=== PATIENT | male | born 1960 | race Caucasian/White ===

== ENCOUNTER 2017-02-20 02:41 | Inpatient (IN) | payer BC ==
[~2017-02-20] VITALS: Ht 177.8 cm; Wt 106.1 kg
[2017-02-20] MEDS ORDERED: IPRATRPIUM/ALBUTEROL 0.5/2.5MG 3 ML NEBU. ONE (02:47)
[2017-02-20] MEDS ORDERED: IV NORMAL SALINE 1,000ML 1,000 ML IV SCH ×2 (02:49→06:00)
[2017-02-20] MEDS ORDERED: ASPIRIN 325 MG TABLET PO ONE (03:00)
[2017-02-20] MEDS ORDERED: 0.9 % SODIUM CHLORIDE 10 ML DISP.SYRIN. IV PRN (03:00)
[2017-02-20] MEDS ORDERED: LORAZEPAM 2 MG/ML VIAL IV ONE (03:00)
[2017-02-20] MEDS: AZITHROMYCIN 500 MG in IV NORMAL SALINE 250ML 250 ML IV SCH (03:00)
[2017-02-20] MEDS ORDERED: AZITHROMYCIN 500 MG VIAL. IV ONE (03:13)
[2017-02-20] MEDS ORDERED: CEFTRIAXONE SODIUM 1 GM VIAL IV ONE (03:14)
[2017-02-20] MEDS ORDERED: IV NORMAL SALINE 100ML 100 ML ONE (03:14)
[2017-02-20] MEDS ORDERED: IV NORMAL SALINE 250ML 250 ML ONE (03:14)
[2017-02-20 03:24] LABS: BASO # 0.1 x10^3/uL (0.0-0.2); BASO % 1 % (0-3); EOS # 0.1 x10^3/uL (0.0-0.7); EOS % 1 % (0-3); HEMATOCRIT 41.3 % (39.0-53.0); HEMOGLOBIN 13.8 g/dL (13.0-17.5); LYMPH % 16 % (24-48); MEAN CORPUSCULAR HEMOGLOBIN 31 pg (25-35); MEAN CORPUSCULAR HGB CONC 33 g/dL (31-37); MEAN CORPUSCULAR VOLUME 94 fL (79-100); MONO # 0.9 x10^3/uL (0.0-1.1); MONO % 7 % (0-9); NEUT # 9.5 x10^3uL (1.8-7.7); NEUT % 76 % (31-73); PLATELET COUNT 257 x10^3/uL (140-400); RED BLOOD COUNT 4.39 x10^6/uL (4.30-5.70); RED CELL DISTRIBUTION WIDTH 14.1 % (11.5-14.5); WHITE BLOOD COUNT 12.5 x10^3/uL (4.0-11.0)
--- NOTE | 2017-02-20 03:29 | PHYS DOC ---
General Chief Complaint: SHORTNESS OF BREATH Stated Complaint: DIFFICULTY BREATHING Time Seen by MD: 02:41 Source: patient Exam Limitations: clinical condition Problems: History of Present Illness Initial Comments Patient is a pleasant 56-year-old male with a one-week history of progressive shortness of breath with productive cough fever and chills supposedly diagnosed today with a pneumonia but not receiving any particular treatment therapy. He describes increasing shortness of breath anxiety chest pain has gotten progressively worse is now continuous with a productive cough, out without sore throat, without runny nose, without headache or rash. He recently traveled to and from [place] via airplane about 1 week ago before the symptoms began. He denies any night sweats or weight loss denies any lower leg swelling pain or edema denies any change in medications. Had a history of COPD or asthma. Modifying Factors: worse with activity, worse with coughing Allergies: Coded Allergies: No Known Drug Allergies (Unverified , 02/20/17) Past Medical History Medical History: heart disease, hypertension Surgical History: angioplasty Family History Significant Family History: no pertinent family hx Social History Smoker: non-smoker Alcohol: rarely Review of Systems Constitutional: chills fever weakness EENTM: denies ear pain, nose congestiondenies throat pain, denies throat swelling, denies mouth pain Respiratory: cough shortness of breathdenies wheezing Cardiovascular: chest paindenies edema, denies palpitations, denies syncope Gastrointestinal: no symptoms reported Genitourinary: no symptoms reported Musculoskeletal: no symptoms reported Skin: no symptoms reported Psychiatric/Neurological: no symptoms reported Hematologic/Lymphatic: no symptoms reported Immunological/Allergic: no symptoms reported All Other Systems: Reviewed and Negative Physical Exam General Appearance: moderate distress Ears, Nose, Throat: pharynx normal, nasal congestion Neck: full range of motion, supple, normal inspection, trachea midline Respiratory: respiratory distress, decreased breath sounds, rales Cardiovascular: normal peripheral pulses, regular rate, rhythm Gastrointestinal: normal bowel sounds, non tender, soft, no organomegaly Extremities: normal range of motion, non-tender, normal inspection, no pedal edema, no calf tenderness, normal capillary refill Neurologic/Psychiatric: alert, normal mood/affect, oriented x 3 Skin: normal color Lymphatic: no adenopathy Comments He does demonstrate moderate anxiety secondary to wrist for distress. There is no obvious cyanosis there is no diaphoresis at this time. His respiratory rate is greater than 20 his oxygen saturation is 95% on room air Orders, Labs, [facility] Laboratory Tests 02/20/17 02:55: White Blood Count 12.5, Red Blood Count 4.39, Hemoglobin 13.8, Hematocrit 41.3, Mean Corpuscular Volume 94, Mean Corpuscular Hemoglobin 31, Mean Corpuscular Hemoglobin Concent 33, Red Cell Distribution Width 14.1, Platelet Count 257, Neutrophils (%) (Auto) 76, Lymphocytes (%) (Auto) 16, Monocytes (%) (Auto) 7, Eosinophils (%) (Auto) 1, Basophils (%) (Auto) 1, Neutrophils # (Auto) 9.5, Lymphocytes # (Auto) 2.0, Monocytes # (Auto) 0.9, Eosinophils # (Auto) 0.1, Basophils # (Auto) 0.1, Sodium Level 139, Potassium Level 3.9, Chloride Level 101, Carbon Dioxide Level 27, Anion Gap 11, Blood Urea Nitrogen 12, Creatinine 0.8, Estimated GFR (Cockcroft-Gault) 99.6, BUN/Creatinine Ratio 15, Glucose Level 104, Lactic Acid Level 1.1, Calcium Level 9.8, Magnesium Level 2.2, Total Bilirubin 0.5, Aspartate Amino Transf (AST/SGOT) 62, Alanine Aminotransferase ( ALT/SGPT) 98, Alkaline Phosphatase 66, Creatine Kinase 135, Creatine Kinase MB ( Mass) 1.0, Creatine Kinase MB Relative Index 0.7, Troponin I Quantitative < 0.017, Total Protein 8.4, Albumin 3.4, Albumin/Globulin Ratio 0.7 02/20/17 03:00: Influenza Type A (Rapid) Negative, Influenza Type B (Rapid) Negative 02/20/17 03:05: Urine Collection Type Unknown, Urine Color Yellow, Urine Clarity Clear, Urine pH 5.0, Urine Specific Sharples 1.020, Urine Protein >100 mg/dl, Urine Glucose ( UA) Neg, Urine Ketones (Stick) Neg, Urine Blood Large, Urine Nitrite Neg, Urine Bilirubin Neg, Urine Urobilinogen Dipstick 1, Urine Leukocyte Esterase Neg, Urine RBC 3-5, Urine WBC 1-4, Urine Squamous Epithelial Cells Occ, Urine Bacteria Few Patient is a pleasant 56-year-old male with history of heart disease hypertension and prior skin cancer presents with shortness of breath that began a week ago after infectious exposure while traveling back and forth to [place] on an airplane. He was seen in urgent care earlier today chest x-ray was completed and he was called with the results of possible infiltrate on his chest x-ray. Patient came in tonight with increasing shortness of breath anxiety fatigue and chest discomfort secondary to the presumptive diagnosis of pneumonia. At this time patient resting more comfortably at approximate 320 8 in the morning after being given some Ativan and fluids he'll be given appropriate antibiotics after appropriate lab tests are been drawn including blood cultures and lactic acid level and given his recent travel history and acute onset of shortness of breath CT imaging chest completed as well. EKG timed at 2:51 AM demonstrates sinus arrhythmia with left axis deviation and old Q wave inferiorly leads 3 and aVF is a somewhat S elevation or changes no T-wave inversion. Patient's chest x-ray demonstrates focal lymphatic left upper lung. Quick review of CT imaging of the chest demonstrates same wedge-shaped infiltrate in the left upper lung. No obvious aortic dissection noted on initial evaluation patient feels markedly better with Ativan IV fluids and antibiotics. Given patient's continued respiratory distress I will admit him to the hospitalist Dr. Naik. It is noted that his white blood cell count is elevated with left shift is noted that his lactic acid level is 1.1 which means is patient is likely not septic at this time patient's troponin is negative CK-MB is within normal limits and MB ratio is within normal limits. Patient influenza screen is also negative per review ILYA CLARKE MD Feb 20, 2017 03:29
[2017-02-20] MEDS: CEFTRIAXONE SODIUM 1 GM in IV NORMAL SALINE 100ML 100 ML IV SCH (03:30)
[2017-02-20 03:34] LABS: BACTERIA,URINE FEW /HPF (0-FEW); BILIRUBIN,URINE NEG (NEG); CLARITY,URINE CLEAR; COLOR,URINE YELLOW; GLUCOSE,URINE NEG (NEG); NITRITE,URINE NEG (NEG); SQUAMOUS EPITHELIAL CELL,UR OCC /LPF; UROBILINOGEN,URINE 1 mg/dL (0.2 mg/dL)
[2017-02-20] MEDS ORDERED: CONTRAST GIVEN MC PRN (03:45)
[2017-02-20 03:53] LABS: ALBUMIN 3.4 g/dL (3.4-5.0); ALBUMIN/GLOBULIN RATIO 0.7 (1.0-1.7); CALCIUM 9.8 mg/dL (8.5-10.1); CREATININE 0.8 mg/dL (0.7-1.3); GFR 99.6; MAGNESIUM 2.2 mg/dL (1.8-2.4); TOTAL BILIRUBIN 0.5 mg/dL (0.2-1.0); TOTAL PROTEIN 8.4 g/dL (6.4-8.2)
[2017-02-20 03:54] LABS: POTASSIUM 3.9 mmol/L (3.5-5.1)
[2017-02-20 04:00] LABS: INFLUENZA A PATIENT NEGATIVE (NEGATIVE); INFLUENZA B PATIENT NEGATIVE (NEGATIVE)
[2017-02-20] MEDS ORDERED: IOHEXOL 300 MG/ML 75 ML VIAL. IV ONE (04:00)
--- NOTE | 2017-02-20 04:10 | RAD ---
PROCEDURE CTA chest with and without contrast 02/20/2017. HISTORY Shortness of breath. Recent travel. Possible pulmonary embolism. TECHNIQUE Helical CT images were made through the chest using an infusion of 75 milliliters Omnipaque 300. MIP reconstructions also were performed. Exposure: One or more of the following individualized dose reduction techniques were utilized for this exam: 1. Automated exposure control. 2. Adjustment of the mA and/or kV according to patient size. 3. Use of iterative reconstruction technique. COMPARISON FINDINGS Some infiltrates are present bilaterally. There is a region of consolidation and ground-glass infiltrate in the left upper lobe. Small airway opacification is seen anteriorly and laterally in the right lower lobe. The lungs otherwise appear clear. The central airways show no obstruction. There is suggestion of some bronchial wall thickening diffusely in both lungs. No enlarged lymph nodes are seen. Evaluation of the pulmonary arterial tree shows only modest degree of opacification of the pulmonary artery branches. This appears to be despite appropriate technique employed. No abnormal filling defect is identified extending at least to the segmental branch level. Images through the upper abdomen show no abnormality. IMPRESSION No evidence of pulmonary embolism. Pulmonary artery opacification was only moderate in degree, and evaluation of the smaller branch vessels is limited. Bilateral pulmonary infiltrates presumably indicating pneumonia. This is most apparent in the left upper lobe. There is also probably bronchitis. Electronically signed by: Hao Gómez (Feb 20, 2017 04:09:11)
[2017-02-20 05:20] VITALS: BP 131/83
[2017-02-20] MEDS ORDERED: ATOR80TA72 PO (06:33)
[2017-02-20] MEDS ORDERED: RAMI5CAP PO (06:33)
[2017-02-20] MEDS ORDERED: METO50TA10 PO (06:34)
[2017-02-20] MEDS ORDERED: AMLO10TA2 PO (06:34)
[2017-02-20] MEDS ORDERED: ASPI81TA2 PO (06:34)
[2017-02-20] MEDS ORDERED: CHOL100013 PO (06:35)
[2017-02-20] MEDS ORDERED: FISH12002 PO (06:35)
--- NOTE | 2017-02-20 07:15 | RAD ---
Exam: AP portable chest. History: Chest pain, shortness of breath, cough. Comparison: None. Findings: The heart and mediastinal structures are within normal limits for size. Infiltrate is seen in left midlung zone and lingula. There may be a lesser infiltrate at the right lung base. No pneumothorax or pleural effusion is appreciated. Impression: 1. Bilateral infiltrates.
[2017-02-20] MEDS: OMEGA-3 FATTY ACIDS/FISH OIL 1,000 MG CAPSULE. PO SCH (09:25)
[2017-02-20] MEDS: ASPIRIN 81 MG TAB.CHEW PO SCH (09:25)
[2017-02-20] MEDS: AMLODIPINE BESYLATE 10 MG TABLET PO SCH (09:26)
[2017-02-20] MEDS: CHOLECALCIFEROL (VITAMIN D3) 1,000 UNIT TABLET PO SCH (09:27)
[2017-02-20] MEDS: LISINOPRIL 10 MG TABLET PO SCH (09:27)
[2017-02-20] MEDS: METOPROLOL SUCC 24HR ER 50 MG TAB.ER.24H. PO SCH (09:27)
--- NOTE | 2017-02-20 09:51 | EKG ---
[address] [address] Test Date: 2017-02-20 Test Time: 02:51:30 Pat Name: CLARE KEY Department: Room: 117 A Gender: M Logistics System Engineer: : 1960 Requested By: ILYA CLARKE Order Number: [id number] Reading MD: Agapito Low Measurements Intervals [place] Rate: 77 P: 55 AK: 160 QRS: -22 QRSD: 112 T: 28 QT: 382 QTc: 434 Interpretive Statements SINUS RHYTHM LEFTWARD AXIS QRS(T) CONTOUR ABNORMALITY CONSIDER ANTEROLATERAL MYOCARDIAL DAMAGE CONSISTENT WITH INFERIOR INFARCT PROBABLY OLD Electronically Signed On 02-24-2017 9:36:27 CDT by Agapito Low
[2017-02-20 10:30] VITALS: BP 120/77
--- NOTE | 2017-02-20 14:13 | ACF ---
Admission Criteria Forms PNEUMONIA, COMMUNITY ACQUIRED Clinical Indications for Admission to Inpatient Care ( Place 'X' for any and all applicable criteria): Admission is indicated for ANY ONE of the following (1)(2)(3): [ ]I. Hypoxemia indicated by ANY ONE of the following: [ ]a) Oxygen saturation less than 90% while breathing room air [ ]b) PO2 less than 60 mm Hg (8.0 kPa) while breathing room air [ ]c) Chronic lung disease with significant deterioration from baseline oxygenation [x]II. Appropriate diagnostic testing and treatment unavailable in outpatient or recovery facility (eg,testing or infection control measures unavailable(10) [ ]III. Moderate-risk or high-risk category patients (Pneumonia Severity Index (PSI) class IV or V, or CURB-65 score of 3 or greater). [ ]IV. Outpatient treatment failure as indicated by ANY ONE of the following(9) : [ ]a) Failure to respond to antibiotic (eg, resistant organism) [ ]b) Clinically significant adverse effects from medication (eg, vomiting) [ ]c) Complications of pneumonia (eg, empyema, bacteremia) [ ]d) Significant worsening of comorbid cond necessitating inpatient care (eg, chronic heart failure) [ ]V. Intermediate-risk category patients (eg, PSI class III or CURB-65 score 2) who do not improve with initial therapy and observation. [ ]. Immunocompromised patients (eg, AIDS, chronic steroid use) at moderate or high risk based on clinical evaluation. [ ]VII. Complicated pleural effusions (eg, exudative, loculated) [ ]VIII.Hemodynamic instability [ ] IX. Altered mental status that is severe or persistent. [ ]X. Dehydration that is severe or persistent. [ ]XI. Bacteremia [ ]XII. Respiratory finding (eg. tachypnea) that do not respond to outpatient or observation care treatment Extended stay beyond goal length of stay may be needed for (20) [ ]a) Unclear diagnosis [ ]b) Pleural disease [ ]c) Severe pneumonia or treatment failure (25 [ ]d) Respiratory failure (anticipate invasive or noninvasive ventilatory support) [ ]e) Abnormal serum electrolytes (serum Na concentration less than 135 mEq/L (mmol/L) (32)(33) [ ]f) Clinically significant comorbid illness (eg, heart failure, atrial fibrillation with rapid heart rate, alcohol withdrawal, renal insufficiency)(34)(35) [ ]g) Comorbid acute exacerbation of COPD(36) [ ]h) Concomitant diagnosis of malignancy that may be associated with malnutrition, immunologic impairment, or bronchial obstruction. [ ]i) Concomitant altered mental status [ ]j) Culture-identified Gram-negative or antibiotic-resistant organism (eg, Pseudomonas, methicillin-resistant Staphylococcus aureus)(30) [ ]k) Healthcare-associated pneumonia The original [facility] content created by [employer] has been revised. The portions of the content which have been revised are identified through the use of italic text or in bold, and [facility] has neither reviewed nor approved the modified material. All other unmodified content is copyright [facility]. Please see references footnoted in the original [facility] edition 2016 Admission Criteria Met?: Yes TAMI LEIJA Feb 20, 2017 14:13
[2017-02-20 14:27] VITALS: BP 122/82
--- NOTE | 2017-02-20 15:33 | HP ---
ADMIT DATE: 02/20/2017 HISTORY OF PRESENT ILLNESS: The patient is a 56-year-old male patient who came to the Emergency Room last night with a complaint of progressive shortness of breath and productive cough, fever and chills. He was diagnosed with pneumonia, but has not received any particular treatment. He describes increasing shortness breath, anxiety, chest pain that has gotten progressively worse and continuous with productive cough. He denied any sore throat or runny nose, headache or rash. He recently traveled to and from [place] by airplane about 1 week ago before the symptoms began. He denied any orthopnea or paroxysmal nocturnal dyspnea. Denied any hemoptysis. Denied any swelling of the legs. He apparently has a history of COPD or asthma. He was seen in the Emergency Room, was found to have leukocytosis. Chest x-ray and CT scan of the chest showed that he has bilateral pulmonary infiltrate and the patient was admitted with diagnosis of acute hypoxic respiratory failure and community-acquired pneumonia and started on IV Rocephin as well as Zithromax. PAST MEDICAL HISTORY: Significant for coronary artery disease status post PTCA and stent deployment, hypertension, hyperlipidemia, skin cancer including melanoma, squamous cell carcinoma and basal cell carcinoma. PAST SURGICAL HISTORY: Significant for percutaneous transluminal coronary angioplasty and stent deployment x 2. He has had a perianal abscess resection, skin cancer resection and also radical bilateral axillary lymphadenopathy that was negative for melanoma. He did have colonoscopy and polypectomy. ALLERGIES: He has no known drug allergies. MEDICATIONS: He is currently on following medications: He is on amlodipine besylate 10 mg once a day, aspirin 81 mg once a day, Atorvastatin 80 mg at bedtime. He is on cholecalciferol 1000 international units once a day, fish oil, [place]-3 1200 mg once a day, metoprolol succinate 50 mg once a day and ramipril 5 mg once a day. FAMILY HISTORY: The patient has 2 older sisters and 1 older brother. His oldest sister is alive and currently lives in [place]. Has had hip replacement surgery. His other sister at age of 70 because of complication of hepatitis C. His brother has skin cancer treated with chemotherapy. His father is still alive at age of 91 and is known to have coronary heart disease as well as skin cancer. Mother at the age of 83 because of the aortic aneurysm. SOCIAL HISTORY: He is , has 3 daughters. He never smoked. Drinks alcohol occasionally. Does not use drugs. Currently retired. Has a background of acting. REVIEW OF SYSTEMS: The patient denied any blurring of vision, cataract, glaucoma or macular degeneration. Denied any earache, tinnitus or sensorineural deafness. Denied any nosebleeds, stuffy nose or postnasal drip. Denied any sore throat, sore tongue, toothache, hoarseness of voice or difficulty swallowing. Denied any nausea, vomiting, diarrhea or constipation. Denied any hematemesis, melena or hematochezia. Denied any dysuria, frequency or hematuria. Denied any chest pain. Did complain of shortness breath, cough, chills, rigors and fever. PHYSICAL EXAMINATION: GENERAL: On arrival to the Emergency Room, the patient was clearly slightly pale, but no jaundice, cyanosis, or thyromegaly. No jugular venous distension. No limb edema. VITAL SIGNS: His heart rate was 70, blood pressure was 131/83, temperature was 98.4, respiratory rate was 28 and oxygen saturation was 95%. HEAD, EYES, EARS, NOSE, AND THROAT: Showed normocephalic, atraumatic. NECK: Supple. HEART: Showed normal first and second heart sounds with no gallop, rub or murmur. CHEST: Shows central trachea, equal bilateral expansion, air entry. Vesicular sounds with crepitation, mostly in both sides posteriorly, more so on the left than right, very few scattered rhonchi. ABDOMEN: Distended, soft, nontender. NEUROLOGIC: He is awake, alert, responding appropriately. Cranial nerves intact. EXTREMITIES: He moves extremities without difficulty, ambulates without assistance or assistive devices. LABORATORY DATA: While in the Emergency Room, his white cell count was 12,500, hemoglobin 13.8, hematocrit 41, MCV 94 and platelet count 257,000 with normal manual differential. His chemistry showed a serum sodium 139, potassium 3.9, chloride 101, bicarbonate 27, anion gap of 11, BUN 12, creatinine 0.8, estimated GFR was 99 mL per minute, his glucose 104, calcium was 9.8, magnesium was 2.2. Lactic acid was 1.1. His total bilirubin, alkaline phosphatase were normal. AST, ALT slightly elevated. His total protein was 8.4, albumin was 3.4. Urine was yellow, clear with a pH of 5, specific gravity of 1.020. Has trace of protein. The urine was negative for glucose, ketones, large amount of blood, negative for nitrite and leukocyte esterase, 3-5 rbc's, 1-4 wbc's, very few bacteria. His influenza A and B were negative. His chest x-ray showed the heart and mediastinal structures are within normal limits for size. Infiltrates seen in the left mid lung zone and lingula with maybe lesser infiltrate in the right lung zone. No pneumothorax or pleural effusion is appreciated. He did have a CT scan of the chest showed no evidence of pulmonary embolism. Pulmonary artery bifurcation was only moderate in degree and evaluation of some other branches, result is very limited; however, did have bilateral pulmonary infiltrates, presumably indicating pneumonia. This is most apparently in his left upper lobe. ASSESSMENT AND PLAN: The patient was basically admitted with acute hypoxic respiratory failure, community-acquired pneumonia. Other medical problems include coronary artery disease status post stent deployment, hypertension, hyperlipidemia. He was admitted and started on IV Rocephin and Zithromax. We will continue all his medication and we will follow him closely and decide on further management accordingly. HAIM GAYLE MD DR: SANTOS/mary JOB#: [id number] / [id number]
[2017-02-20 18:28] VITALS: BP 122/79
[2017-02-20] MEDS ORDERED: ATORVASTATIN CALCIUM 20 MG TABLET PO SCH (21:00)
[2017-02-20] MEDS: IPRATRPIUM/ALBUTEROL 0.5/2.5MG 3 ML NEBU. NEB SCH (22:06)
[2017-02-20 22:35] VITALS: BP 111/69
[2017-02-21] MEDS: CEFTRIAXONE SODIUM 1 GM in IV NORMAL SALINE 100ML 100 ML IV SCH (03:07)
[2017-02-21] MEDS: AZITHROMYCIN 500 MG in IV NORMAL SALINE 250ML 250 ML IV SCH (03:43)
[2017-02-21] MEDS: IPRATRPIUM/ALBUTEROL 0.5/2.5MG 3 ML NEBU. NEB SCH ×2 (05:17→11:16)
[2017-02-21 05:37] VITALS: BP 126/72
[2017-02-21 06:15] LABS: BASO # 0.1 x10^3/uL (0.0-0.2); BASO % 1 % (0-3); EOS # 0.2 x10^3/uL (0.0-0.7); EOS % 2 % (0-3); HEMATOCRIT 38.4 % (39.0-53.0); HEMOGLOBIN 12.8 g/dL (13.0-17.5); LYMPH # 2.8 x10^3/uL (1.0-4.8); LYMPH % 32 % (24-48); MEAN CORPUSCULAR HEMOGLOBIN 32 pg (25-35); MEAN CORPUSCULAR HGB CONC 33 g/dL (31-37); MEAN CORPUSCULAR VOLUME 95 fL (79-100); MONO # 0.6 x10^3/uL (0.0-1.1); MONO % 8 % (0-9); NEUT # 4.9 x10^3uL (1.8-7.7); NEUT % 57 % (31-73); PLATELET COUNT 252 x10^3/uL (140-400); RED BLOOD COUNT 4.06 x10^6/uL (4.30-5.70); RED CELL DISTRIBUTION WIDTH 14.4 % (11.5-14.5); WHITE BLOOD COUNT 8.6 x10^3/uL (4.0-11.0)
[2017-02-21 06:27] LABS: ALBUMIN/GLOBULIN RATIO 0.7 (1.0-1.7); CALCIUM 9.3 mg/dL (8.5-10.1); CREATININE 0.7 mg/dL (0.7-1.3); GFR 116.2; POTASSIUM 3.9 mmol/L (3.5-5.1); TOTAL BILIRUBIN 0.4 mg/dL (0.2-1.0); TOTAL PROTEIN 7.4 g/dL (6.4-8.2)
[2017-02-21] MEDS: AMLODIPINE BESYLATE 10 MG TABLET PO SCH (10:40)
[2017-02-21] MEDS: OMEGA-3 FATTY ACIDS/FISH OIL 1,000 MG CAPSULE. PO SCH (10:41)
[2017-02-21] MEDS: ASPIRIN 81 MG TAB.CHEW PO SCH (10:41)
[2017-02-21] MEDS: LISINOPRIL 10 MG TABLET PO SCH (10:41)
[2017-02-21] MEDS: METOPROLOL SUCC 24HR ER 50 MG TAB.ER.24H. PO SCH (10:41)
[2017-02-21] MEDS: CHOLECALCIFEROL (VITAMIN D3) 1,000 UNIT TABLET PO SCH (10:41)
[2017-02-21 11:40] VITALS: BP 119/74
[2017-02-21] MEDS ORDERED: CEFP200T PO (14:44)
[2017-02-21] MEDS ORDERED: IPRA3AMP NEB (15:03)
--- NOTE | 2017-02-21 19:42 | DS ---
DATE OF DISCHARGE: 02/21/2017 HOSPITAL COURSE: The patient is a 56-year-old male patient who was admitted with the complaint of cough, shortness of breath, fever and chills. He was diagnosed with pneumonia and was affecting mostly his left upper lobe and lingula, and we did start him on IV Rocephin and Zithromax and did extremely well. PHYSICAL EXAMINATION: GENERAL: When I saw him today, he looked well and was clearly in no apparent respiratory distress, pale, but no jaundice, cyanosis or thyromegaly. No jugular venous distention. No lower limb edema. VITAL SIGNS: His heart rate was 69, blood pressure was 119/74, temperature was 98.3, respiratory rate 20 and oxygen saturation was 94% on room air. HEAD, EYES, EARS, NOSE AND THROAT: Showed normocephalic, atraumatic. NECK: Supple. HEART: Showed normal first and second heart sounds with no gallop, rub or murmur. CHEST: Showed central trachea, good bilateral chest expansion, air entry, vesicular sounds. I could not really appreciate any crepitation or rhonchi. ABDOMEN: Distended, soft, nontender. No guarding or rigidity. No organomegaly. All hernial orifices intact. Bowel sounds normal. NEUROLOGIC: He is awake, alert, responding appropriately. Cranial nerves are intact. He moves extremities without difficulty, ambulates without assistance or assistive devices. LABORATORY DATA: His lab work this morning showed white cell count is 8600, hemoglobin 12.8, hematocrit 38.4, MCV 95 and platelet count 252,000. His chemistry showed a serum sodium 141, potassium 3.9, chloride 105, bicarbonate 28, anion gap of 8, BUN 7, creatinine 0.7, estimated GFR was 116. His glucose was 107, calcium was 9.3. Total bilirubin, AST, ALT are elevated. Alkaline phosphatase was normal. Total protein was 7.4, albumin was 3. DISCHARGE MEDICATIONS: The patient will be discharged home to continue on Vantin 200 mg twice a day for 7 days, amlodipine 10 mg once a day, aspirin 81 mg once a day, atorvastatin calcium 80 mg at bedtime, vitamin D 1000 international units once a day, fish oil, omega 3 fatty acid 1200 mg daily, metoprolol succinate 50 mg once a day, ramipril 50 mg once a day and DuoNeb by nebulizer 4 times a day. FINAL DISCHARGE DIAGNOSES: 1. Community-acquired pneumonia, resolved. 2. Coronary artery disease status post PTCA and stent deployment. 3. Hypertension. 4. Hyperlipidemia. 5. Multiple skin cancers including melanoma, squamous cell carcinoma, renal cell carcinoma. 6. He apparently also carries a diagnosis of chronic obstructive pulmonary disease, although he stated that only to the Emergency Room, not when I asked him personally. HAIM GAYLE MD DR: SANTOS/mary JOB#: [id number] / [id number]
== END 2017-02-21 15:46 | disposition home or self-care (01) | DRG 189 ==
LOC: ER 02:41 → 1 SOUTH 04:15
PROVIDERS: ADMIT Internal Medicine; ATTEND Internal Medicine
DX: J96.01 Acute respiratory failure with hypoxia (principal); J18.9 Pneumonia, unspecified organism; J44.0 Chronic obstructive pulmonary disease with (acute) lower respiratory infection; C64.9 Malignant neoplasm of unspecified kidney, except renal pelvis; I10 Essential (primary) hypertension; E78.5 Hyperlipidemia, unspecified; I25.10 Atherosclerotic heart disease of native coronary artery without angina pectoris; F41.9 Anxiety disorder, unspecified; J44.9 Chronic obstructive pulmonary disease, unspecified; J45.909 Unspecified asthma, uncomplicated; Z80.8 Family history of malignant neoplasm of other organs or systems; Z82.49 Family history of ischemic heart disease and other diseases of the circulatory system; Z85.820 Personal history of malignant melanoma of skin; Z95.5 Presence of coronary angioplasty implant and graft
CPT/HCPCS: 36415; 71010; 71275; 80053; 81001; 82553; 83605; 83735; 84484; 85027; 87040; 87070; 87205; 87449; 87804; 93005; 94640; 96361; 96374; 96375; J0456; J0696; J2060; J7050; J7620; Q9967; 99285-25; J7030

== ENCOUNTER 2020-02-28 15:37 | Emergency (ER) | payer BC ==
[~2020-02-28] VITALS: Ht 177.8 cm; Wt 108.8 kg
[~2020-02-28 15:37] MED LIST: AMLO10TA8 PO; ASPI-630 PO; ATOR80TA72 PO; CEFP200T PO; CHOL100013 PO; FISH12002 PO; IPRA3AMP29 NEB; METO50TA29 PO; RAMI5CAP50 PO
--- NOTE | 2020-02-28 16:02 | PHYS DOC ---
Past History Past Medical History: Bronchitis, Cancer, High Cholesterol, Hypertension Past Surgical History: Other Alcohol Use: Occasionally Drug Use: None General Adult EDM: Chief Complaint: CHEST PAIN HPI: HPI: 59-year-old male presents with chest pain. The patient has had several episodes of central chest pain that starts between his breasts and radiates upward toward his neck over the last couple weeks. He presents today because this episode lasted 2 hours. It was moderate to severe in intensity. He also has shortness of breath and a feeling of warmth during these episodes. He denies gracie diaphoresis. He is not sure if he gets worse with exertion because he just focuses on his breathing and resting when these episodes happen. They seem to happen at random. He did have a stent placed 7 years ago. He has not had an echo, cardiac catheter stress test in several years. He is scheduled for an echocardiogram tomorrow. This is a regular regularly scheduled appointment because his physician heard a murmur about 6 months ago. The patient is pain- free at this time. Denies fever chills. He is on blood pressure and hyperlipidemia medications. Review of Systems: Review of Systems: Constitutional: Denies fever or chills Eyes: Denies change in visual acuity HENT: Denies nasal congestion or sore throat Respiratory: shortness of breath Cardiovascular: Chest pain GI: Denies abdominal pain, nausea, vomiting, bloody stools or diarrhea : Denies dysuria Musculoskeletal: Denies back pain or joint pain Integument: Denies rash Neurologic: Denies headache, focal weakness or sensory changes Endocrine: Denies polyuria or polydipsia Lymphatic: Denies swollen glands Psychiatric: Denies depression or anxiety Heart Score: HEART Score for Chest Pain: HEART Score for Chest Pain Response (Comments) Value History Moderately Suspicious 1 ECG Normal 0 Age >45 - < 65 1 Risk Factors >3 Risk Factors or Hx CAD 2 Troponin < Normal Limit 0 Total 4 Risk Factors: Risk Factors: DM, Current or recent (<one month) smoker, HTN, HLP, family history of CAD, obesity. Risk Scores: Score 0 - 3: 2.5% MACE over next 6 weeks - Discharge Home Score 4 - 6: 20.3% MACE over next 6 weeks - Admit for Clinical Observation Score 7 - 10: 72.7% MACE over next 6 weeks - Early Invasive Strategies Allergies: Allergies: Allergies Coded Allergies Type Severity Reaction Last Updated Verified No Known Drug Allergies 02/20/17 No Physical Exam: PE: Constitutional: Well developed, well nourished, no acute distress, non-toxic appearance. [] HENT: Normocephalic, atraumatic, bilateral external ears normal, oropharynx moist, no oral exudates, nose normal. [] Eyes: PERRLA, EOMI, conjunctiva normal, no discharge. [] Neck: Normal range of motion, no tenderness, supple, no stridor. [] Cardiovascular:Heart rate regular rhythm, no murmur [] Lungs & Thorax: Bilateral breath sounds clear to auscultation [] Abdomen: Bowel sounds normal, soft, no tenderness, no masses, no pulsatile masses. [] Skin: Warm, dry, no erythema, no rash. [] Back: No tenderness, no CVA tenderness. [] Extremities: No tenderness, no cyanosis, no clubbing, ROM intact, no edema. [] Neurologic: Alert and oriented X 3, normal motor function, normal sensory function, no focal deficits noted. [] Psychologic: Affect normal, judgement normal, mood normal. [] EKG: EKG: Sinus rhythm, rate 68, leftward axis, no ST elevations or depressions. [] Radiology/Procedures: Radiology/Procedures: [] Impressions: AP portable chest radiograph 02/28/2020 Clinical History: Chest pain. An AP erect portable digital radiograph of the chest was obtained. Comparison study is dated 02/20/2017. The cardiac silhouette is normal in size. The thoracic aorta is mildly tortuous. Atherosclerotic calcification of the thoracic aorta is seen. No acute pulmonary infiltrate is noted. No pneumothorax or pleural effusion is seen. Degenerative changes are seen involving the thoracic spine along with both shoulders. Impression: No acute abnormality is seen. Electronically signed by: Jose R Yusuf MD (02/28/2020 4:10 PM) [id number] DICTATED AND SIGNED BY: JOSE R YUSUF MD DATE: 02/28/20 1610 CC: CLARKE BRIONES DO; SANDEE TEAGUE MD ~ Course & Med Decision Making: Course & Med Decision Making Pertinent Labs and Imaging studies reviewed. (See chart for details) The patient's labs are unremarkable. His troponin is negative. His EKG is unremarkable. His chest x-ray is negative for acute findings. This could still be anginal pain. The patient's heart score is a 4. I have offered to admit the patient for further observation overnight. He would prefer to go home. He does have his echocardiogram scheduled for tomorrow. He will also call his physicians and let them know about his recent symptoms and consider a stress test. He is stable for discharge at this time. If his symptoms return, he will come back to the emergency room. [] Dragon Disclaimer: Dragon Disclaimer: This electronic medical record was generated, in whole or in part, using a voice recognition dictation system. Departure Departure: Impression: Primary Impression: Chest pain Qualified Codes: R07.9 - Chest pain, unspecified Disposition: 01 HOME, SELF-CARE Condition: STABLE Referrals: SANDEE TEAGUE MD (PCP) Patient Instructions: Chest Pain (Nonspecific), [id number] CLARKE BRIONES DO February 28, 2020 16:02
[2020-02-28 16:08] LABS: BASO # 0.1 x10^3/uL (0.0-0.2); BASO % 1 % (0-3); EOS # 0.1 x10^3/uL (0.0-0.7); EOS % 1 % (0-3); HEMATOCRIT 47.6 % (39.0-53.0); LYMPH # 2.6 x10^3/uL (1.0-4.8); LYMPH % 33 % (24-48); MEAN CORPUSCULAR HEMOGLOBIN 32 pg (25-35); MEAN CORPUSCULAR HGB CONC 34 g/dL (31-37); MEAN CORPUSCULAR VOLUME 94 fL (79-100); MONO # 0.8 x10^3/uL (0.0-1.1); MONO % 11 % (0-9); NEUT # 4.4 x10^3uL (1.8-7.7); NEUT % 55 % (31-73); PLATELET COUNT 219 x10^3/uL (140-400); RED BLOOD COUNT 5.05 x10^6/uL (4.30-5.70); RED CELL DISTRIBUTION WIDTH 14.2 % (11.5-14.5)
--- NOTE | 2020-02-28 16:13 | RAD ---
AP portable chest radiograph 02/28/2020 Clinical History: Chest pain. An AP erect portable digital radiograph of the chest was obtained. Comparison study is dated 02/20/2017. The cardiac silhouette is normal in size. The thoracic aorta is mildly tortuous. Atherosclerotic calcification of the thoracic aorta is seen. No acute pulmonary infiltrate is noted. No pneumothorax or pleural effusion is seen. Degenerative changes are seen involving the thoracic spine along with both shoulders. Impression: No acute abnormality is seen. Electronically signed by: Jose R Dove MD (02/28/2020 4:10 PM) [id number]
[2020-02-28 16:20] LABS: CALCIUM 9.5 mg/dL (8.5-10.1); CREATININE 0.8 mg/dL (0.7-1.3); GFR 98.6; POTASSIUM 3.6 mmol/L (3.5-5.1)
[2020-02-28 16:30] LABS: ALBUMIN 4.2 g/dL (3.4-5.0); ALBUMIN/GLOBULIN RATIO 1.2 (1.0-1.7); TOTAL BILIRUBIN 0.6 mg/dL (0.2-1.0); TOTAL PROTEIN 7.8 g/dL (6.4-8.2)
[2020-02-28 16:45] VITALS: BP 119/81
--- NOTE | 2020-02-28 17:45 | EKG ---
[address] [address] Test Date: 2020-02-28 Test Time: 15:45:12 Pat Name: CLARE KEY Department: Room: Gender: M Presales Senior Specialist: : [id number] Requested By: CLARKE BRIONES Order Number: [id number] Reading MD: Iam Wills Measurements Intervals [place] Rate: 68 P: 38 ME: 180 QRS: -28 QRSD: 114 T: 30 QT: 404 QTc: 430 Interpretive Statements SINUS RHYTHM LEFTWARD AXIS QRS(T) CONTOUR ABNORMALITY CONSISTENT WITH INFERIOR INFARCT PROBABLY OLD ABNORMAL ECG Electronically Signed On 02-29-2020 8:17:48 CDT by Iam Wills
== END 2020-02-28 17:12 | disposition home or self-care (01) ==
LOC: ER 15:37
DX: R07.89 Other chest pain (principal); E78.00 Pure hypercholesterolemia, unspecified; I10 Essential (primary) hypertension
CPT/HCPCS: 36415; 71045; 80053; 83880; 84484; 85025; 93005; 99285